=== PATIENT | female | born 1935 ===

== ENCOUNTER → 2017-07-04 | Outpatient (CLI) | payer MEDICARE, BC ==
--- NOTE | 2017-07-05 04:33 | CT ---
EXAM DATE: 07/04/2017 8:03 AM [employer] SPECIALIST. PROCEDURE: CT NECK ANGIOGRAPHY WITH IV CONTRAST. INDICATION: CAROTID ARTERY STENOSIS. COMPARISON: None. TECHNIQUE: Axial CT images of the neck were obtained after administration of intravenous contrast. Coronal and sagittal reformats were also obtained. 3-D postprocessing was acquired at an independent workstation. This exam was performed according to our departmental dose-optimization program which includes use of Automated Exposure Control, adjustment of the mA and/or kV according to patient size and/or use of iterative reconstruction technique. FINDINGS: The left vertebral artery arises from the aortic arch. There is otherwise a conventional arch anatomy. The right common carotid artery demonstrates normal course and caliber. There is a small amount of soft plaque at the carotid bulb however no significant stenosis of the internal carotid artery. The right internal carotid artery is mildly tortuous however demonstrates no significant stenosis. The left common carotid artery and the left internal carotid artery demonstrates no significant stenosis. Right dominant vertebral artery without significant stenosis. The left V1, V2, and V3 segments demonstrate no stenosis or occlusion. The left vertebral artery terminates predominantly as the PICA. Mild calcific atherosclerosis of the bilateral cavernous ICAs. Mild biapical scarring. Lungs otherwise clear. 4 mm left thyroid nodule. No imaging follow-up is recommended. The soft tissues of the neck are unremarkable. IMPRESSION: No significant stenosis of the major neck vessels. A small amount of soft plaque seen at the right carotid bulb. Electronically signed by: Monty Atkinson MD 07/05/2017 4:32 AM LAN SPECIALIST
== END | disposition home or self-care (01) ==
LOC: CT 13:13
PROVIDERS: ATTEND Family Medicine
DX: I34.0 Nonrheumatic mitral (valve) insufficiency (principal); I65.23 Occlusion and stenosis of bilateral carotid arteries; Z23 Encounter for immunization